=== PATIENT | female | born 1985 | race Caucasian/White ===

== ENCOUNTER → 2016-11-15 | Outpatient (REF) ==
[2016-11-15 12:44] LABS: BASO % 0.2 % (0.0-1.0); EOS % 0.4 % (0.0-3.0); LARGE UNSTAINED CELL # 0.1 K/mm3 (0.0-0.4); LARGE UNSTAINED CELL % 1.3 % (0.0-4.0); LYMPH # 1.5 K/mm3 (1.5-6.5); LYMPH % 19.5 % (24.0-44.0); MEAN CORPUSCULAR HGB CONC 33.1 g/dl (32.0-36.5); MEAN CORPUSCULAR VOLUME 87.4 fl (80.0-96.0); MONO # 0.4 K/mm3 (0.0-0.8); MONO % 4.4 % (0.0-5.0); NEUTROPHILS # 5.8 K/mm3 (1.8-7.7); NEUTROPHILS % 74.2 % (36.0-66.0); PLATELET COUNT, AUTOMATED 295 k/mm3 (150-450); RED CELL DISTRIBUTION WIDTH 13.1 % (11.5-14.5); WHITE BLOOD COUNT 7.8 K/mm3 (4.0-10.0)
[2016-11-15 13:08] LABS: ALBUMIN 3.9 GM/DL (3.2-5.2); ALBUMIN/GLOBULIN RATIO 1.15 (1.00-1.93); ALKALINE PHOSPHATASE 39 U/L (45-117); ALT/SGPT 17 U/L (12-78); ANION GAP 11 MEQ/L (8-16); AST/SGOT 16 U/L (15-37); BILIRUBIN,TOTAL 0.4 MG/DL (0.2-1.0); BLOOD UREA NITROGEN 16 MG/DL (7-18); CARBON DIOXIDE LEVEL 24 MEQ/L (21-32); CHLORIDE LEVEL 103 MEQ/L (98-107); CREATININE FOR GFR 0.75 MG/DL (0.55-1.02); GLOMERULAR FILTRATION RATE > 60.0 (>60); GLUCOSE, FASTING 86 MG/DL (70-105); POTASSIUM SERUM 4.7 MEQ/L (3.5-5.1); SODIUM LEVEL 138 MEQ/L (136-145); TOTAL PROTEIN 7.3 GM/DL (6.4-8.2)
== END ==
LOC: M LAB 11:42
PROVIDERS: ATTEND Nurse Practitioner Adult Health
DX: Z02.1 Encounter for pre-employment examination (principal)

== ENCOUNTER → 2016-12-23 | Outpatient (CLI) | payer OTHER ==
--- NOTE | 2016-12-24 08:37 | REP ---
RIGHT FOOT COMPLETE: 12/23/2016. Clinical history: Right foot pain first and second MTP joint region. No prior study. Findings. The four views show no evidence of narrowing, erosion or destructive lesions at the MTP joints. There is minor sclerosis along the articular aspect of the proximal phalanx of the second and first toe. Minor soft tissue swelling about the first MTP joint with minimal spurring from that distal first metatarsal head. There is no visible or displaced fracture, avulsion or erosion. There is dorsal spur in the neck of the talus on the lateral view. No heel spur. Subtalar joints are intact. Tarsal bones and articulations intact. Impression: 1. Swelling of soft tissues about the first MTP joint with minimal degenerative change 1st MTP greater than second. No joint space narrowing or fracture. No erosion. 2. IP joints, the other phalanges and MTP joints, tarsals, tarsal bones and hind foot grossly intact. Signed by Ti Lehman MD 12/24/2016 09:29 P
== END ==
LOC: M SMT 14:56
PROVIDERS: ATTEND Family Medicine
DX: M19.071 Primary osteoarthritis, right ankle and foot (principal)

== ENCOUNTER → 2017-06-02 | Outpatient (CLI) | payer OTHER ==
[2017-06-02 17:59] LABS: FREE T4 1.02 NG/DL (0.76-1.46)
== END ==
LOC: M SMT 13:32
PROVIDERS: ATTEND Family Medicine
DX: Z13.29 Encounter for screening for other suspected endocrine disorder (principal)

== ENCOUNTER → 2017-11-09 | Outpatient (CLI) | payer OTHER ==
[2017-11-09 19:33] LABS: ANION GAP 7 MEQ/L (8-16); CARBON DIOXIDE LEVEL 28 MEQ/L (21-32); CHLORIDE LEVEL 102 MEQ/L (98-107); SODIUM LEVEL 137 MEQ/L (136-145)
[2017-11-09 19:37] LABS: POTASSIUM SERUM 5.2 MEQ/L (3.5-5.1)
== END ==
LOC: M SMT 14:05
DX: Z51.81 Encounter for therapeutic drug level monitoring (principal); Z79.899 Other long term (current) drug therapy; L70.0 Acne vulgaris
CPT/HCPCS: 80051